=== PATIENT | female | born 1975 | race Hispanic/Latino ===

== ENCOUNTER 2017-11-14 20:34 | Emergency (ER) | payer SELFPAY ==
[2017-11-14] MEDS ORDERED: LIDOCAINE HCL-MPF 1% 2ML VIAL ONE (21:19)
[2017-11-14] MEDS ORDERED: CEFTRIAXONE SODIUM 1 GM ONE (21:20)
[2017-11-14 21:24] LABS: APPEARANCE,URINE CLOUDY (CLEAR); BILIRUBIN,URINE MODERATE (NEGATIVE); COLOR,URINE YELLOW (YELLOW); GLUCOSE, URINE (UA) 100 mg/dL (NEGATIVE); KETONES,URINE 5 mg/dL (NEGATIVE); LEUKOCYTE ESTERASE ,URINE LARGE (NEGATIVE); NITRATE,URINE POSITIVE (NEGATIVE); OCCULT BLOOD,URINE SMALL (NEGATIVE); PROTEIN,URINE >=300 (NEGATIVE)
[2017-11-14 21:30] LABS: AMORPHOUS SEDIMENT,UR Few /LPF (None Seen); BACTERIA,URINE Few /HPF (None Seen); SQUAMOUS EPITHELIAL CELL,UR Few /HPF (0-2); WBC,URINE 26-50 /HPF (0-1)
== END 2017-11-14 21:50 | disposition home or self-care (01) ==
LOC: EDH 20:34
DX: N39.0 Urinary tract infection, site not specified (principal); R50.81 Fever presenting with conditions classified elsewhere; I10 Essential (primary) hypertension; Z98.51 Tubal ligation status; Z90.49 Acquired absence of other specified parts of digestive tract; Z79.899 Other long term (current) drug therapy
CPT/HCPCS: 81001; 96372; 99283; J0696; J3490

== ENCOUNTER 2017-12-23 18:50 | Inpatient (IN) | payer SELFPAY ==
[~2017-12-23] VITALS: Ht 152.4 cm; Wt 94.3 kg
[2017-12-23 19:23] LABS: APPEARANCE,URINE CLOUDY (CLEAR); BILIRUBIN,URINE SMALL (NEGATIVE); COLOR,URINE ORANGE (YELLOW); GLUCOSE, URINE (UA) 100 mg/dL (NEGATIVE); KETONES,URINE 40 mg/dL (NEGATIVE); LEUKOCYTE ESTERASE ,URINE MODERATE (NEGATIVE); NITRATE,URINE POSITIVE (NEGATIVE); OCCULT BLOOD,URINE SMALL (NEGATIVE); PROTEIN,URINE >=300 (NEGATIVE)
[2017-12-23] MEDS ORDERED: CEFTRIAXONE SODIUM 1 GM ONE (19:29)
[2017-12-23] MEDS ORDERED: ONDANSETRON ODT 4 MG TAB ONE (19:29)
[2017-12-23 19:30] LABS: WBC,URINE 26-50 /HPF (0-1)
[2017-12-23 19:31] LABS: BACTERIA,URINE Moderate /HPF (None Seen); SQUAMOUS EPITHELIAL CELL,UR Few /HPF (0-2)
[2017-12-23] MEDS ORDERED: SODIUM CHLORIDE 0.9% 1000ML 1,000 ML IV ONE ×2 (19:41→22:47)
[2017-12-23 19:45] LABS: BASOPHILS % (AUTO) 0.3 % (0.0-5.0); EOSINOPHILS % (AUTO) 0.1 % (0.0-8.0); HEMATOCRIT 34.2 % (36-48); LYMPHOCYTES % (AUTO) 2.6 % (21.0-51.0); MEAN CORPUSCULAR HEMOGLOBIN 26.7 pg (27.0-33.0); MEAN CORPUSCULAR HGB CONC 33.4 g/dL (32.0-36.0); MONOCYTES % (AUTO) 5.1 % (3.0-13.0); NEUTROPHILS % (AUTO) 91.9 % (40.0-77.0); PLATELET COUNT (AUTO) 302 K/uL (130-400); RED BLOOD CELL COUNT(AUTO) 4.27 MIL/uL (4.00-5.50)
[2017-12-23 19:54] LABS: CREATININE 1.2 mg/dL (0.5-1.5); POTASSIUM 3.3 mmol/L (3.5-5.1)
[2017-12-23 19:59] LABS: ALBUMIN 3.3 g/dL (3.5-5.0); BILIRUBIN,TOTAL 0.9 mg/dL (0.2-1.0); TOTAL PROTEIN, SERUM 7.3 g/dL (6.0-8.3)
[2017-12-23 20:01] LABS: WHITE BLOOD COUNT (AUTO) 31.9 K/uL (4.8-10.8)
[2017-12-23 20:36] LABS: BAND NEUTROPHILS % (MANUAL) 14 % (0-2); LYMPHOCYTES % (MANUAL) 4 % (22-44); MAN.DIFF COMMENT-IMPRESSION MANUAL DIFFERENTIAL; MONOCYTES % (MANUAL) 3 % (2-9); SEGMENTED NEUTROPHILS % 79 % (40-70)
[2017-12-23] MEDS ORDERED: ACETAMINOPHEN EXTRA STRENGTH 500 MG TABLET ONE (20:39)
[2017-12-23] MEDS ORDERED: IOPAMIDOL-370 75 ML VIAL IV ONE (20:48)
[2017-12-23] MEDS ORDERED: SODIUM CHLORIDE 0.9% 1000ML 1,000 ML IV SCH (23:00)
[2017-12-23 23:01] LABS: INR 1.07 (0.85-1.15); PROTHROMBIN TIME 11.2 SEC (9.6-11.6)
[2017-12-23 23:24] LABS: CREATINE KINASE MB < 0.5 ng/mL (0.5-3.6); CREATINE KINASE, TOTAL 47 U/L (21-232); MYOGLOBIN 54 ng/mL (10-92); TROPONIN I < 0.04 ng/mL (0.00-0.06)
[2017-12-23] MEDS ORDERED: KETOROLAC TROMETHAMINE 30MG/ML ONE (23:24)
[2017-12-23] MEDS ORDERED: LOSA50TA37 PO (23:58)
[2017-12-24] VITALS (7 sets, daily range): BP systolic 73–143; BP diastolic 60–77
[2017-12-24] MEDS: SODIUM CHLORIDE 0.9% 1000ML 1,000 ML IV SCH ×3 (00:58→14:40)
[2017-12-24] MEDS ORDERED: ACETAMINOPHEN 325 MG TAB PO PRN (01:00)
[2017-12-24] MEDS ORDERED: MORPHINE SULFATE 4 MG/1ML SYG IV PRN (01:00)
[2017-12-24] MEDS ORDERED: CEFTRIAXONE 1GM/D5W 50ML 50 ML IV SCH (01:00)
[2017-12-24] MEDS ORDERED: POTASSIUM CHLORIDE 20MEQ/100ML 100 ML IV PRN (01:00)
[2017-12-24] MEDS ORDERED: POTASSIUM CHLORIDE 10% ELIXIR 20 MEQ/15 ML UDCUP PO PRN (01:00)
[2017-12-24] MEDS ORDERED: LIDOCAINE HCL-MPF 1% 2ML VIAL IVP PRN (01:00)
[2017-12-24] MEDS ORDERED: ACETAMINOPHEN 325 MG TAB ONE (03:29)
[2017-12-24] MEDS ORDERED: ONDANSETRON HCL 4 MG/2 ML VIAL ONE (03:30)
[2017-12-24] MEDS ORDERED: ONDANSETRON HCL MDV 20ML 2 MG/ML VIAL IVP PRN (04:00)
[2017-12-24 04:48] LABS: HEMATOCRIT 28.5 % (36-48); MEAN CORPUSCULAR HEMOGLOBIN 28.4 pg (27.0-33.0); MEAN CORPUSCULAR HGB CONC 35.5 g/dL (32.0-36.0); MEAN CORPUSCULAR VOLUME 80.1 fL (79-99); PLATELET COUNT (AUTO) 263 K/uL (130-400); RED BLOOD CELL COUNT(AUTO) 3.55 MIL/uL (4.00-5.50); RED CELL DISTRIBUTION WIDTH 16.2 % (11.0-15.5); WHITE BLOOD COUNT (AUTO) 28.9 K/uL (4.8-10.8)
[2017-12-24 05:00] LABS: CREATININE 1.2 mg/dL (0.5-1.5); POTASSIUM 3.2 mmol/L (3.5-5.1)
[2017-12-24] MEDS: POTASSIUM CHLORIDE 20 MEQ ERTAB PO PRN ×3 (06:09→20:39)
[2017-12-24] MEDS ORDERED: ACETAMINOPHEN-CODEINE 300/30MG TAB PO PRN ×2 (08:15)
[2017-12-24] MEDS ORDERED: KETOROLAC TROMETHAMINE 15MG/ML IV PRN (08:15)
[2017-12-24] MEDS ORDERED: MORPHINE SULFATE 4 MG/1ML SYG IVP PRN (08:15)
[2017-12-24] MEDS ORDERED: MORPHINE SULFATE 2 MG/ML 1ML SYG IVP PRN (08:15)
[2017-12-24] MEDS ORDERED: CEFTRIAXONE 2GM+NS 100ML 100 ML IV SCH (08:15)
[2017-12-24] MEDS ORDERED: CEFTRIAXONE SODIUM 1 GM IVP SCH (09:00)
[2017-12-24] MEDS: ACETAMINOPHEN 325 MG TAB PO PRN ×2 (09:20→23:40)
[2017-12-24] MEDS: FAMOTIDINE 20MG TAB 20 MG TAB PO SCH (09:20)
[2017-12-24] MEDS: CEFTRIAXONE SODIUM 2 GM VIAL IVP SCH (09:20)
[2017-12-24] MEDS: ENOXAPARIN SODIUM 40 MG/0.4 ML SYRINGE SQ SCH (09:21)
[2017-12-24] MEDS: IBUPROFEN 600 MG TABLET PO PRN ×2 (13:17→22:10)
[2017-12-25] MEDS: SODIUM CHLORIDE 0.9% 1000ML 1,000 ML IV SCH (00:48)
[2017-12-25 03:00] VITALS: BP 130/83
[2017-12-25 04:12] LABS: HEMATOCRIT 28.2 % (36-48); MEAN CORPUSCULAR HGB CONC 33.2 g/dL (32.0-36.0); MEAN CORPUSCULAR VOLUME 81.4 fL (79-99); PLATELET COUNT (AUTO) 235 K/uL (130-400); RED BLOOD CELL COUNT(AUTO) 3.46 MIL/uL (4.00-5.50); RED CELL DISTRIBUTION WIDTH 16.6 % (11.0-15.5)
[2017-12-25 04:35] LABS: CREATININE 0.9 mg/dL (0.5-1.5); POTASSIUM 3.6 mmol/L (3.5-5.1)
[2017-12-25] MEDS: POTASSIUM CHLORIDE 20 MEQ ERTAB PO PRN (06:17)
[2017-12-25 07:00] VITALS: BP 131/67
[2017-12-25] MEDS: CEFTRIAXONE SODIUM 2 GM VIAL IVP SCH (08:56)
[2017-12-25] MEDS: FAMOTIDINE 20MG TAB 20 MG TAB PO SCH (08:57)
[2017-12-25] MEDS: ENOXAPARIN SODIUM 40 MG/0.4 ML SYRINGE SQ SCH (08:57)
[2017-12-25 11:00] VITALS: BP 130/77
[2017-12-25] MEDS: ACETAMINOPHEN 325 MG TAB PO PRN (12:34)
[2017-12-25 15:43] VITALS: BP 146/80
[2017-12-25] MEDS ORDERED: ONDANSETRON HCL 4 MG/2 ML VIAL ONE (16:38)
[2017-12-25] MEDS: IBUPROFEN 600 MG TABLET PO PRN (16:40)
[2017-12-25 20:00] VITALS: BP 142/78
[2017-12-26] VITALS: BP 136/82
[2017-12-26] MEDS: IBUPROFEN 600 MG TABLET PO PRN ×2 (03:49→23:59)
[2017-12-26 04:00] VITALS: BP 162/99
[2017-12-26 04:52] LABS: HEMATOCRIT 26.9 % (36-48); MEAN CORPUSCULAR HEMOGLOBIN 27.7 pg (27.0-33.0); MEAN CORPUSCULAR HGB CONC 34.7 g/dL (32.0-36.0); MEAN CORPUSCULAR VOLUME 79.8 fL (79-99); PLATELET COUNT (AUTO) 260 K/uL (130-400); RED BLOOD CELL COUNT(AUTO) 3.37 MIL/uL (4.00-5.50); RED CELL DISTRIBUTION WIDTH 16.8 % (11.0-15.5); WHITE BLOOD COUNT (AUTO) 14.7 K/uL (4.8-10.8)
[2017-12-26 04:57] LABS: CREATININE 0.7 mg/dL (0.5-1.5); POTASSIUM 3.1 mmol/L (3.5-5.1)
[2017-12-26] MEDS: CEFTRIAXONE SODIUM 2 GM VIAL IVP SCH (07:47)
[2017-12-26] MEDS: FAMOTIDINE 20MG TAB 20 MG TAB PO SCH (07:47)
[2017-12-26] MEDS: ENOXAPARIN SODIUM 40 MG/0.4 ML SYRINGE SQ SCH (07:48)
[2017-12-26 08:00] VITALS: BP 126/73
[2017-12-26] MEDS: LOSARTAN 50 MG TABLET PO SCH ×2 (09:00→20:27)
[2017-12-26 10:54] VITALS: BP 138/77
[2017-12-26] MEDS ORDERED: MEROPENEM 500MG+NS 50ML 50 ML IV SCH (14:00)
[2017-12-26] MEDS: MEROPENEM 500 MG VIAL IVP SCH ×2 (14:03→22:57)
[2017-12-26] MEDS: POTASSIUM CHLORIDE 20 MEQ ERTAB PO PRN ×3 (14:04→18:19)
[2017-12-26 16:00] VITALS: BP 150/97
[2017-12-26 20:00] VITALS: BP 142/94
[2017-12-27] VITALS: BP 168/92
[2017-12-27] MEDS ORDERED: HYDRALAZINE HCL 20 MG/ML VIAL IV PRN (00:30)
[2017-12-27] MEDS ORDERED: HYDRALAZINE HCL 20 MG/ML VIAL ONE (00:34)
[2017-12-27 04:00] VITALS: BP 128/74
[2017-12-27 05:39] LABS: HEMATOCRIT 26.3 % (36-48); MEAN CORPUSCULAR HEMOGLOBIN 29.2 pg (27.0-33.0); MEAN CORPUSCULAR HGB CONC 36.4 g/dL (32.0-36.0); MEAN CORPUSCULAR VOLUME 80.2 fL (79-99); PLATELET COUNT (AUTO) 298 K/uL (130-400); RED BLOOD CELL COUNT(AUTO) 3.28 MIL/uL (4.00-5.50); RED CELL DISTRIBUTION WIDTH 16.7 % (11.0-15.5); WHITE BLOOD COUNT (AUTO) 11.3 K/uL (4.8-10.8)
[2017-12-27 05:47] LABS: CREATININE 0.7 mg/dL (0.5-1.5); POTASSIUM 3.3 mmol/L (3.5-5.1)
[2017-12-27] MEDS: MEROPENEM 500 MG VIAL IVP SCH (05:54)
[2017-12-27] MEDS ORDERED: MACR100 PO (08:21)
[2017-12-27 08:26] VITALS: BP 147/88
[2017-12-27] MEDS: FAMOTIDINE 20MG TAB 20 MG TAB PO SCH (09:00)
[2017-12-27] MEDS: ENOXAPARIN SODIUM 40 MG/0.4 ML SYRINGE SQ SCH (09:00)
[2017-12-27] MEDS: LOSARTAN 50 MG TABLET PO SCH (09:52)
== END 2017-12-27 11:30 | disposition home or self-care (01) | DRG 872 ==
LOC: EDH 18:50 → OBSVTOIN 18:51 → EDHIP 18:51 → UNDOADMOB 22:12 → EDHIP 22:12 → 3BH 12-24 00:13
PROVIDERS: ADMIT Family Medicine; ATTEND Family Medicine
DX: A41.9 Sepsis, unspecified organism (principal); N12 Tubulo-interstitial nephritis, not specified as acute or chronic; I10 Essential (primary) hypertension; D64.9 Anemia, unspecified; D25.1 Intramural leiomyoma of uterus; Z16.12 Extended spectrum beta lactamase (ESBL) resistance; Z90.49 Acquired absence of other specified parts of digestive tract; Z98.51 Tubal ligation status
CPT/HCPCS: 36415; 71045; 74177; 76857; 80048; 80053; 81001; 81025; 82550; 82553; 83605; 83874; 84484; 85025; 85027; 85610; 85730; 87040; 87088; 87186; 93005; A4218; J0360; J0696; J1650; J1885; J2185; J2405; J7030; Q9967

== ENCOUNTER 2025-04-23 15:21 | Emergency (ER) | payer OTHER ==
[~2025-04-23] VITALS: Ht 152.4 cm; Wt 93.0 kg
[~2025-04-23 15:21] MED LIST: LOSA50TA64 PO; MACR100 PO
--- NOTE | 2025-04-23 15:27 | ERN ---
ED Note History of Present Illness Stated Complaint: BACK PAIN Chief Complaint: Back Pain-No Injury Time Seen by MD: 15:23 Dictation: PATIENT IS A 49-YEAR-OLD FEMALE COMING IN TODAY WITH RIGHT FLANK PAIN THAT RADIATES TO RIGHT UPPER AND LOWER QUADRANTS ONSET 3-4 DAYS PRIOR TO ARRIVAL. SHE HAS HAD NO FEVER NO CHILLS NO NAUSEA VOMITING. STATES SHE SAW HER DOCTOR LAST SATURDAY AND DOCTOR WAS DOING SOME BASIC LABS DID A URINALYSIS AND TOLD HER SHE HAD A URINARY TRACT INFECTION PRESCRIBED BACTRIM. SHE STATES THEN SHE STARTED NOTICING THE PAIN GOT WORSE DESPITE THE BACTRIM AND SHE READ ON GOOGLE THAT IT COULD CAUSE PAIN SO SHE STOPPED TAKING IT WITHOUT TALKING TO HER DOCTOR. Allergies: Coded Allergies: No Known Drug Allergies (Verified Allergy, Unknown, 12/23/17) Home Meds Active Scripts Nitrofurantoin/Nitrofuran Mac (Macrobid) 100 Mg Cap, 100 MG PO BID, #20 CAP Prov:CRISTA SHARP MD 12/27/17 Reported Medications Losartan Potassium (Losartan Potassium) 50 Mg Tablet, 50 MG PO BID, TAB 12/23/17 Past Medical History History: Not Applicable RN Note Reviewed/Agreed w/PFSH: Yes Review of System Dictation CONSTITUTIONAL: NEGATIVE EXCEPT FOR HPI HEAD/FACE: NEGATIVE EXCEPT FOR HPI EENT: NEGATIVE EXCEPT FOR HPI RESPIRATORY: NEGATIVE EXCEPT FOR HPI GASTROINTESTINAL/ABDOMINAL: NEGATIVE EXCEPT FOR HPI RIGHT FLANK PAIN THAT RADIATES TO RIGHT LOWER QUADRANT GENITOURINARY: NEGATIVE EXCEPT FOR HPI MUSCULOSKELETAL: NEGATIVE EXCEPT FOR HPI INTEGUMENTARY: NEGATIVE EXCEPT FOR HPI NEUROLOGICAL/PSYCH: NEGATIVE EXCEPT FOR HPI HEMATOLOGIC/LYMPHATIC: NEGATIVE EXCEPT FOR HPI ALL SYSTEMS NEGATIVE, EXCEPT NOTED ABOVE. 13 POINT REVIEW OF SYSTEMS ASSESSED AND ALL NEGATIVE EXCEPT FOR ABOVE. Initial Vital Sign VS Vital Signs Date Time Temp Pulse Resp B/P (MAP) Pulse Ox O2 Delivery O2 Flow Rate FiO2 04/23/25 15:22 98.4 68 18 162/77 99 04/23/25 17:48 Room Air* 0 21 Physical Exam Dictation VITAL SIGNS REVIEWED GENERAL APPEARANCE: ALERT, ORIENTED X 3, MILD ACUTE DISTRESS, WELL DEVELOPED, NOURISHED. OBESE HEAD AND FACE: NON-TRAUMATIC. EYES: PERRL, PINK CONJUNCTIVAS, EYELID NO TRAUMA, ANTERIOR CHAMBER WITH ARCUS SENILIS. EARS: PINNAS INTACT AND NO SIGNS OF TRAUMA OR ERYTHEMA EAR CANALS CLEAR AND NO DISCHARGE TM NO ERYTHEMA NOSE: NO DISCHARGE, NO BLEEDING. OROPHARYNX: MOUTH NORMAL, TONGUE PINK, PHARYNX CLEAR,NO ERYTHEMA, TONSILS NO EXUDATES, NO ABSCESSES NOTED, MUCOUS MEMBRANE MOIST NECK: SUPPLE, NON-TENDER, NO THYROMEGALY, NO MASSES, NO JVD, NO BRUITS BREAST:DEFERRED CHEST:NO TENDERNESS, NO CREPITUS, NO PARADOXICAL MOVEMENT, NO RETRACTIONS LUNGS:CLEAR, WELL-VENTILATED, SYMMETRIC, NO RALES, NO WHEEZING, NO RHONCHI, NO STRIDOR, GOOD BREATH SOUNDS BILATERALLY HEART: REGULAR RATE, REGULAR RHYTHM, NO MURMUR, NO GALLOPS VASCULAR: NO PERIPHERAL EDEMA, ABDOMEN: SOFT, POSITIVE BOWEL SOUNDS, NONDISTENDED, NO GUARDING, NONTENDER, NO REBOUND, NO MASSES NO HEPATOMEGALY, NO SPLENOMEGALY, NO MAGANA'S SIGN, NO HERNIAS. NEGATIVE CVAT BILATERALLY PATIENT HAS A SURGICALLY ABSENT GALLBLADDER RECTAL: DEFERRED GENITAL: DEFERRED NEUROLOGICAL: NORMAL SPEECH, MOTOR FUNCTION INTACT, SENSORY FUNCTION INTACT MUSCULOSKELETAL: NECK NONTENDER, FULL RANGE OF MOTION, BACK NONTENDER, FULL RANGE OF MOTION, EXTREMITIES: NONTENDER, FULL RANGE OF MOTION SKIN: COLOR PINK, DRY, NO TURGOR, NO RASH, NO LACERATIONS, NO ABRASIONS, NO CONTUSIONS. LYMPHATIC: DEFERRED Results (Laboratory/Radiology) Laboratory/Radiology Laboratory Tests Test 04/23/25 17:14 04/23/25 18:05 Urine Color COLORLESS (YELLOW) Urine Appearance CLEAR (CLEAR) Urine pH 5.5 (5.0-8.0) Urine Specific [place] 1.005 (1.001-1.031) Urine Protein NEGATIVE mg/dL (NEGATIVE) Urine Glucose (UA) NEGATIVE mg/dL (NEGATIVE) Urine Ketones NEGATIVE mg/dL (NEGATIVE) Urine Occult Blood NEGATIVE (NEGATIVE) Urine Nitrate NEGATIVE (NEGATIVE) Urine Bilirubin NEGATIVE mg/dL (NEGATIVE) Urine Urobilinogen 0.2 mg/dL (0.2-1.0) Urine Leukocyte Esterase NEGATIVE Jesus/uL White Blood Count 9.3 K/uL (4.8-10.8) Red Blood Count 4.17 MIL/uL (4.00-5.50) Hemoglobin 11.5 g/dL (12.0-16.0) L Hematocrit 35.0 % (36-48) L Mean Corpuscular Volume 83.9 fL (79-99) Mean Corpuscular Hemoglobin 27.6 pg (27.0-33.0) Mean Corpuscular Hemoglobin Concent 32.9 g/dL (32.0-36.0) Red Cell Distribution Width 14.3 % (11.0-15.5) Platelet Count 336 K/uL (130-400) Mean Platelet Volume 9.9 fL (7.5-10.5) Immature Granulocyte % (Auto) 0.3 % (0-1) Neutrophils (%) (Auto) 63.7 % (40.0-77.0) Lymphocytes (%) (Auto) 28.3 % (21.0-51.0) Monocytes (%) (Auto) 6.1 % (3.0-13.0) Eosinophils (%) (Auto) 1.4 % (0.0-8.0) Basophils (%) (Auto) 0.2 % (0.0-5.0) Neutrophils # (Auto) 5.9 K/uL (1.8-7.7) Lymphocytes # (Auto) 2.6 K/uL (1.0-4.8) Monocytes # (Auto) 0.6 K/uL (0.1-1.0) Eosinophils # (Auto) 0.13 K/uL (0.00-0.70) Basophils # (Auto) 0.02 K/uL (0.00-0.20) Absolute Immature Granulocyte (auto 0.03 K/uL (0-1) Nucleated Red Blood Cells 0.0 % (0.0-0.19) Sodium Level 134 mmol/L (136-145) L Potassium Level 3.9 mmol/L (3.5-5.1) Chloride Level 103 mmol/L (101-111) Carbon Dioxide Level 26 mmol/L (21-32) Blood Urea Nitrogen 8 mg/dL (7-18) Creatinine 0.6 mg/dL (0.5-1.0) Glomerular Filtration Rate Calc 109 mL/min (>90) Random Glucose 95 mg/dL (70-105) Total Calcium 8.9 mg/dL (8.5-10.1) Total Bilirubin 0.4 mg/dL (0.2-1.0) Aspartate Amino Transf (AST/SGOT) 14 U/L (10-37) Alanine Aminotransferase (ALT/SGPT) 22 U/L (12-78) Alkaline Phosphatase 75 U/L (50-136) Total Protein 7.0 g/dL (6.0-8.3) Albumin 3.8 g/dL (3.5-5.0) RENAL ULTRASOUND DEMONSTRATES PATIENT HAS BILATERAL RENAL STONES. NO HYDRO NEPHROSIS NO HYDRO URETER Labs Reviewed?: Yes ED Course ED Course Orders Procedure Category Date Status Time Us Renal Sonogram US 04/23/25 Resulted 15:25 Urinalysis Profile LAB 04/23/25 Complete 15:25 Cbc With Differential LAB 04/23/25 Complete 17:58 Comprehensive LAB 04/23/25 Complete Metabolic Panel 17:58 Vital Signs Date Time Temp Pulse Resp B/P (MAP) Pulse Ox O2 Delivery O2 Flow Rate FiO2 04/23/25 17:48 98.4 62 18 140/71 99 Room Air* 0 21 04/23/25 15:22 98.4 68 18 162/77 99 1800/SPOKE WITH PATIENT AT LENGTH REGARDING CLINICAL FINDINGS TO INCLUDE ULTRASOUND OF THE KIDNEY AND URINALYSIS. SHE STATES SHE IS SCARED BECAUSE SHE DOES NOT WANT TO LOSE HER LIVER AND SHE SAID THAT ONE OF THE THINGS SHE HAS READ ON [employer] IS THAT THE ANTIBIOTICS SHE WAS PRESCRIBED IN CAUSE LIVER DAMAGE. SHE WOULD LIKE ADDITIONAL LABS RUN. NOW STATES HER PAIN IS MORE TO THE GALLBLADDER FOSSA AND RIGHT UPPER QUADRANT. THERE WAS NO HEPATOMEGALY I TOLD PATIENT I WOULD LIKE A CBC AND A COMPREHENSIVE METABOLIC PANEL TO LOOK AT LIVER [id number] 1840/SPOKE WITH PATIENT AT LENGTH REGARDING CLINICAL FINDINGS AND CMP AND LIVER FUNCTION TEST. SHE IS AWARE THAT THERE WAS NO INFECTION NO ANEMIA SHE IS MILDLY HYPONATREMIC WITH A 134. ALL QUESTIONS ANSWERED SHE STATES SHE HAS A AN APPOINTMENT WITH THE UROLOGIST NEXT MONTH BECAUSE SHE HAS HAD FREQUENT UTIS IN THE PAST. SHE HAS A WHERE CURRENTLY THAT SHE DOES NOT HAVE ANY INFECTIOUS Medical Decision Making MDM MDM: DIFFERENTIAL DIAGNOSIS: PYELONEPHRITIS/UROLITHIASIS/URETERAL COLIC/UTI/ELECTROLYTE IMBALANCE/DEHYDRATION ELEVATED LIVER ENZYMES RATIONALE: TESTS CONSIDERED AND ORDERED SECONDARY TO SHARED DECISION MAKING INCLUDE: LABS/ULTRASOUND PREVIOUS OUTSIDE RECORDS REVIEWED: OLD ER VISITS. RISK OF COMPLICATION AND/OR MORBIDITY OR MORTALITY OF PATIENT MANAGEMENT: NONE MEDICATIONS-PER MEDICATION RECONCILIATION NEED FOR HOSPITALIZATION: PATIENT DOES NOT MEET CRITERIA FOR HOSPITALIZATION. NO NEED FOR EMERGENCY MAJOR/MINOR SURGERY: NO THERE ARE NO SOCIAL CONCERNS WITH THIS PATIENT. PRESCRIPTION DRUG MANAGEMENT IBUPROFEN PRESCRIPTIONS WILL INCLUDE SYMPTOMATIC CARE PATIENT'S PRIOR EXTERNAL MEDICAL RECORDS FROM OTHER ER VISITS WERE REVIEWED BY ME INDICATED. PRIOR TESTING AND RESULTS FROM PREVIOUS VISITS WERE REVIEWED. PRIOR TESTS WERE TAKEN INTO ACCOUNT WITH MEDICAL DECISION MAKING AND RESOURCE UTILIZATION, INDEPENDENT HISTORIAN/HISTORIANS WERE USED TO OBTAIN COMPLETE MEDICAL HISTORY. I INDEPENDENTLY INTERPRETED THE TEST THAT WERE PERFORMED, RESULTS WERE REVIEWED BY ME AND CONSIDERED FINDINGS ON RADIOLOGY IF ORDERED. MEDICAL MANAGEMENT AND EXAMINATION INTERPRETATION DISCUSSIONS WERE HAD BY ME WITH OTHER QUALIFIED HEALTHCARE PROFESSIONALS INDICATED FOR THE PATIENT'S CARE. DX & DISP Disposition: Discharge Departure Impression: Primary Impression: Bilateral renal stones Additional Impressions: Acute right flank pain, Hyponatremia Condition: Stable Scripts Ibuprofen (Ibuprofen 800 mg Tab) 800 Mg Tab 800 MG PO Q8H PRN for fever or pain, #30 TAB 0 Refills Prov: MIGUELITO THACKER RACKER OCTAVE BOARD 04/23/25 Additional Instructions: FOLLOW-UP WITH PRIMARY CARE PROVIDER IN 1 TO 2 DAYS. TAKE MEDICATIONS DIRECTED HERE IN THE EMERGENCY ROOM. OKAY TO CONTINUE HOME MEDICATIONS UNLESS OTHERWISE DISCUSSED DURING YOUR VISIT IN THE EMERGENCY ROOM TODAY. RETURN TO YOUR NEAREST EMERGENCY ROOM IF SYMPTOMS WORSEN OR IF THERE IS NO IMPROVEMENT. CALL 911 IF YOU NEED IMMEDIATE ASSISTANCE. TAKE TYLENOL OR MOTRIN [id number] NEEDED AND IF NO CONTRAINDICATIONS ARE PRESENT. INCREASE ORAL HYDRATION. A WOUND CULTURE OR URINE CULTURE WAS ORDERED HERE IN THE EMERGENCY ROOM DEPARTMENT PLEASE FOLLOW-UP WITH PRIMARY CARE PROVIDER AND ADVISE THEM TO GET REPEAT PORTS FROM OUR FACILITY. IF YOU HAD ANY ARON WRAP/SPLINTS THAT WERE APPLIED HERE, PLEASE DO NOT REMOVE THEM UNTIL YOU SEE YOUR PRIMARY CARE OR SPECIALTY. TAKE IBUPROFEN WITH FOOD NEEDED FOR PAIN. FOLLOW UP WITH YOUR PRIMARY CARE DOCTOR NEXT WEEK. Referrals: EMILY WRAY (PCP) Time of Disposition: 18:42 I have reviewed the case, and I agree with, Diagnosis and Plan MIGUELITO THACKER NP Apr 23, 2025 15:27
--- NOTE | 2025-04-23 16:56 | HMCIMG ---
EXAM: US Retroperitoneum, Renal. CLINICAL HISTORY: RIGHT FLANK PAIN THAT RADIATES TO RIGHT UPPER AND LOWER QUADRANTS TECHNIQUE: Real-time ultrasound of the retroperitoneum with image documentation. COMPARISON: None provided. FINDINGS: RIGHT KIDNEY: Normal in size and contour. There is a 6mm and 5mm non-obstructing renal stones. No hydronephrosis. LEFT KIDNEY: Normal in size and contour. There are twoo 10mm non-obstructing renal stones.. No hydronephrosis. BLADDER: Unremarkable as visualized. MISCELLANEOUS: No other significant abnormality evident. IMPRESSION: 1. Bilateral non-obstructing renal stones, largest measuring 10 mm in the left kidney. 2. No hydronephrosis. /Sherrie
[2025-04-23 17:35] LABS: APPEARANCE,URINE CLEAR (CLEAR); GLUCOSE, URINE (UA) NEGATIVE (NEGATIVE); LEUKOCYTE ESTERASE ,URINE NEGATIVE Leu/uL (NEGATIVE); NITRATE,URINE NEGATIVE (NEGATIVE); OCCULT BLOOD,URINE NEGATIVE (NEGATIVE)
[2025-04-23 17:41] LABS: ADD UA MICROSCOPIC NO
[2025-04-23 17:48] VITALS: BP 140/71; PULSE 62; RESP 18; TEMP 98.4; O2SAT 99
[2025-04-23 18:11] LABS: IMMATURE GRANULOCYTE ABSOLUTE 0.03 K/uL (0-1); NUCLEATED RED BLOOD CELLS 0.0 % (0.0-0.19); PLATELET COUNT (AUTO) 336 K/uL (130-400); RED BLOOD CELL COUNT(AUTO) 4.17 MIL/uL (4.00-5.50); RED CELL DISTRIBUTION WIDTH 14.3 % (11.0-15.5); WHITE BLOOD COUNT (AUTO) 9.3 K/uL (4.8-10.8)
[2025-04-23 18:21] LABS: CREATININE 0.6 mg/dL (0.5-1.0); GLOMERULAR FILTR. RATE CALC 109.0 mL/min (>90); GLUCOSE,RANDOM 95.0 mg/dL (70-105); SODIUM SERUM 134.0 mmol/L (136-145); UREA NITROGEN, BLOOD 8.0 mg/dL (7-18)
[2025-04-23 18:25] LABS: ASPARTATE AMINOTRANSFERASE 14.0 U/L (10-37); TOTAL PROTEIN, SERUM 7.0 g/dL (6.0-8.3)
[2025-04-23] MEDS ORDERED: IBUP-2077 PO (18:43)
== END 2025-04-23 18:52 | disposition home or self-care (01) ==
LOC: EDH 15:21
DX: N20.0 Calculus of kidney (principal); E87.1 Hypo-osmolality and hyponatremia; Z79.899 Other long term (current) drug therapy
CPT/HCPCS: 36415; 76770; 80053; 81003; 85025; 99284